=== PATIENT | male | born 1960 | race Caucasian/White ===

== ENCOUNTER 2016-03-27 14:30 | Emergency (ER) | payer OTHER ==
--- NOTE | 2016-03-27 17:54 | ED CLINICAL REPORT ---
Clinical Report - Physicians/Mid Levels [facility] [address] [place] [address] 03/27/2016 14:32 Patient: NAVEED BUCK Time Seen: 17:18; initial patient contact, initial documentation, patient care assumed. Arrived- By private vehicle. Historian- patient. HISTORY OF PRESENT ILLNESS Chief Complaint: COUGH, FEVER and "FLU". This started today and is still present. It was abrupt in onset. The illness is described as moderate. The patient has had a cough, fever and muscle aches. No difficulty breathing, chest discomfort or pain or sore throat. No nasal congestion or discharge, sinus pressure, sinus drainage or ear pain. Additional history - The patient has had contact with a sick family member. They have had similar symptoms. Similar symptoms previously: None. Recent medical care: Not recently seen/assessed. REVIEW OF SYSTEMS The patient has had nausea. No vomiting. He has had diarrhea (about x10 episodes today). No tenesmus or associated cramps. All systems otherwise negative, except as recorded above. PAST HISTORY See nurses notes. PROBLEMS: Bronchitis. Myofascial Strain. Closed head injury. Sleep Apnea. Psoriasis. --16:01 Pardeep Corona R.N. ADDITIONAL SURGERIES: Splenectomy. --16:01 Pardeep Corona RDarling. SOCIAL HISTORY Former smoker. Regular alcohol use; consumes two beers a week. Not exposed to second-hand smoke at home. No drug use. No recent travel. Is a local resident. FAMILY HISTORY Negative. ADDITIONAL NOTES The nursing notes have been reviewed with agreement regarding the chief complaint, HPI, ROS, PMH and patient medications and allergies. PHYSICAL EXAM Vital Signs: 03/27/2016 15:56 BP: 129/77. HR: 124. RR: 18. O2 saturation: 96%. Temp: 100 F. Have been reviewed as abnormal and appear to be correct. Blood pressure normal. Tachycardic. Respiratory rate normal. Febrile. Oxygen saturation normal. Appearance: Alert. No acute distress. Eyes: Pupils equal, round and reactive to light. Eyes normal inspection. ENT: Ears normal. Nose normal. Pharynx normal. Uvula midline. Neck: Normal inspection. Neck supple. CVS: Normal heart rate and rhythm. Heart sounds normal. Pulses normal. Respiratory: No respiratory distress. Breath sounds normal. Back: Normal inspection. Skin: Skin warm and dry. Normal skin color. No rash. Normal skin turgor. Extremities: Extremities exhibit normal ROM. No lower extremity edema. Neuro: Oriented X 3. No motor deficit. No sensory deficit. PROGRESS AND PROCEDURES Patient and spouse counseled in person regarding the patient's stable condition and diagnosis. 17:54. Differential Diagnosis: Other possible considerations: flu, viral illness, uri, bronchitis, pneumonia. Above considerations are based on history and physical exam. Differential diagnosis was discussed with patient and patient's spouse. Disposition: Discharged home in good and improved condition (17:54). Condition: good and stable. CLINICAL IMPRESSION Acute viral rhinitis. Acute fever Diarrhea INSTRUCTIONS Alternate Tylenol (Acetaminophen) and Motrin (Ibuprofen) for fever, temperature greater than 101 degrees orally. Take according to label instructions. Do not work today, for two days. Drink plenty of fluids for the next 24 hours until better. Warnings: GENERAL WARNINGS: Return or contact your physician immediately if your condition worsens or changes unexpectedly, if not improving as expected, or if other problems arise. Specifically return if problem worsens. Prescription Medications: Zofran 4 mg: Take 1 orally every six hours as needed for nausea/vomiting. Dispense ten (10). No refills. Substitution is permissible. Follow-up: Follow up with your doctor in about three days even if well. Call for an appointment. Summary of care provided to patient and family. Understanding of the discharge instructions verbalized by patient. (Electronically signed by Katie Trevino A.R.N.P. 03/27/2016 19:42)
--- NOTE | 2016-03-27 17:54 | ED NURSING NOTES ---
Clinical Report - Nurses [facility] [address] [place] [address] 03/27/2016 14:32 Patient: NAVEED BUCK TRIAGE Triage time 15:56 Mar 27 2016. Acuity: LEVEL 3. Chief Complaint: FEVER and BODY ACHES. Alert. ROSETTE COMA SCORE: [place] Coma Scale: 15- eyes open spontaneously (4); best verbal response- oriented x 4 (5); best motor response- obeys commands (6). --16:04 Pardeep Corona R.N. 15:56 03/27/16. BP: 129/77. HR: 124. RR: 18. O2 saturation: 96% on room air. Temp: 100 F (oral). Additional comments: stomach and MCKOY. --16:04 Pardeep Corona R.N. Weight: 92.9 kg stated. Height/Length: 69 inches Per Patient. BMI: 30.3. --15:58 Pardeep Corona R.N. Medications Ibuprofen Oral, as needed. --16:03 Pardeep Corona R.N. Allergies Penicillins. (Uncertain reaction) --16:03 Pardeep Corona R.N. History Arrived by private vehicle. Historian: patient. Accompanied by spouse. Primary physician (none). ( Flu-like symptoms with fever, chils muscle aches and a piercing MCKOY and diarrhea, N/V.). Onset. (about 13 hours ago). He has had chills, fatigue, a headache, abdominal pain and vomiting. He has had diarrhea. No recent travel. 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 (Pepto Bismol). SOCIAL HX: Former smoker, end date 2001. Alcohol use; consumes two beers a week. No drug use. No recent travel. No infectious disease exposure. ABUSE ASSESSMENT: No report of abuse. FALL RISK ASSESSMENT: Fall risk assessment completed. No fall risk identified. NUTRITIONAL RISK ASSESSMENT: The nutritional risk assessment revealed no deficiencies. FUNCTIONAL ASSESSMENT: Functional assessment: no impairments noted. LEARNING NEEDS ASSESSMENT: The learning needs assessment revealed no barriers. SKIN INTEGRITY ASSESSMENT: Skin integrity risk assessment completed. No skin integrity risk identified. --16:04 Pardeep Corona R.N. PROBLEMS: Bronchitis. Myofascial Strain. Closed head injury. Sleep Apnea. Psoriasis. --16:01 Pardeep Corona R.N. ADDITIONAL SURGERIES: Splenectomy. --16:01 Pardeep Corona R.N. Interventions ID band on patient. To treatment room. --16:04 Pardeep Corona R.N. PHYSICAL ASSESSMENT 17:10 03/27/16. Ambulatory to room. GENERAL / NEURO / PSYCH: Oriented X 4. RESPIRATORY: Respirations not labored. CVS: Capillary refill less than 2 seconds. SKIN: Skin is warm and dry. --17:10 Mejia Gomez R.N. NURSING PROGRESS NOTES 17:03/27/16. The plan of care for this patient has been created. Head of bed elevated. Two patient identifiers checked. Call light placed in reach. Side rails up x 2. Bed placed in lowest position. Brakes of bed on. Brakes of chair on. --17:10 Mejia Gomez R.N. 17:10 03/27/16. Patient ready for evaluation- chart flagged and notification provided. --17:11 Mejia Gomez R.N. 17:16 03/27/2016 Zofran ODT (Ondansetron) PO 4 mg given. Allergies verified and confirmed 5 rights. --17:16 Mejia Gomez R.N. 17:51 03/27/16. Reassessment after medication administered. Overall patient status- he states feels better. --17:51 Mejia Gomez R.N. DISPOSITION / DISCHARGE 18:08 03/27/16. Condition at departure: improved. The goals identified in the patient's plan of care were met. No learning barriers present. Discharge instructions provided and reviewed with the patient. Reviewed warnings. Reviewed medication(s). Treatments reviewed. FALL RISK ASSESSMENT: Fall risk assessment completed. No fall risk identified. --18:09 Mejia Gomez R.N. 18:08 03/27/16. BP: 116/72. HR: 101. RR: 16. O2 saturation: 100% on room air. Temp: 98.2 F (oral). --18:09 Mejia Gomez R.N. 18:09 03/27/16. Patient verbalized understanding. Written instructions provided in Bel[place]ian. The patient was discharged by the nurse practitioner. He was discharged home and accompanied by family. He left the Emergency Department ambulatory and via private vehicle. Family member driving. --18:09 Mejia Gomez R.N. 18:09 03/27/16. Departure time: 18:09. --18:09 Mejia Gomez R.N. Locked/Released at 03/27/2016 19:10 by Mejia Gomez R.N.
--- NOTE | 2016-03-27 17:54 | ED ORDER SUMMARY ---
..... Patient: NAVEED BUCK OrderSheet [facility] VisitID: [id number] [address] [place] [address] 56y, M Registration Date/Time: 03/27/2016 ORDER SHEET Weight: 92.9 kg (stated) Allergies: Penicillins GENERAL ORDERS: MEDICATION ORDERS: Zofran ODT PO 4 mg (NOW) (17:16 03/27/2016 Martin Bergman.Andrés per protocol) (17:16 Martin Bergman.Karmen.) IV FLUIDS: ORDER SHEET NOTES: [Electronically signed by Mejia Gomez R.N. (19:10 03/27/2016)] [Electronically signed by Katie Trevino (19:42 03/27/2016)] [Electronically locked/signed by Mejia Gomez R.N. (19:10 03/27/2016)]
--- NOTE | 2016-03-27 17:54 | ED NURSING NOTES ---
Clinical Report - Nurses [facility] [address] [place] [address] 03/27/2016 14:32 Patient: NAVEED BUCK TRIAGE Triage time 15:56 Mar 27 2016. Acuity: LEVEL 3. Chief Complaint: FEVER and BODY ACHES. Alert. ROSETTE COMA SCORE: [place] Coma Scale: 15- eyes open spontaneously (4); best verbal response- oriented x 4 (5); best motor response- obeys commands (6). --16:04 Pardeep Corona R.N. 15:56 03/27/16. BP: 129/77. HR: 124. RR: 18. O2 saturation: 96% on room air. Temp: 100 F (oral). Additional comments: stomach and MCKOY. --16:04 Pardeep Corona R.N. Weight: 92.9 kg stated. Height/Length: 69 inches Per Patient. BMI: 30.3. --15:58 Pardeep Corona R.N. Medications Ibuprofen Oral, as needed. --16:03 Pardeep Corona R.N. Allergies Penicillins. (Uncertain reaction) --16:03 Pardeep Corona R.N. History Arrived by private vehicle. Historian: patient. Accompanied by spouse. Primary physician (none). ( Flu-like symptoms with fever, chils muscle aches and a piercing MCKOY and diarrhea, N/V.). Onset. (about 13 hours ago). He has had chills, fatigue, a headache, abdominal pain and vomiting. He has had diarrhea. No recent travel. 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 (Pepto Bismol). SOCIAL HX: Former smoker, end date 2001. Alcohol use; consumes two beers a week. No drug use. No recent travel. No infectious disease exposure. ABUSE ASSESSMENT: No report of abuse. FALL RISK ASSESSMENT: Fall risk assessment completed. No fall risk identified. NUTRITIONAL RISK ASSESSMENT: The nutritional risk assessment revealed no deficiencies. FUNCTIONAL ASSESSMENT: Functional assessment: no impairments noted. LEARNING NEEDS ASSESSMENT: The learning needs assessment revealed no barriers. SKIN INTEGRITY ASSESSMENT: Skin integrity risk assessment completed. No skin integrity risk identified. --16:04 Pardeep Corona R.N. PROBLEMS: Bronchitis. Myofascial Strain. Closed head injury. Sleep Apnea. Psoriasis. --16:01 Pardeep Corona R.N. ADDITIONAL SURGERIES: Splenectomy. --16:01 Pardeep Corona R.N. Interventions ID band on patient. To treatment room. --16:04 Pardeep Corona R.N. PHYSICAL ASSESSMENT 17:10 03/27/16. Ambulatory to room. GENERAL / NEURO / PSYCH: Oriented X 4. RESPIRATORY: Respirations not labored. CVS: Capillary refill less than 2 seconds. SKIN: Skin is warm and dry. --17:10 Mejia Gomez R.N. NURSING PROGRESS NOTES 17:03/27/16. The plan of care for this patient has been created. Head of bed elevated. Two patient identifiers checked. Call light placed in reach. Side rails up x 2. Bed placed in lowest position. Brakes of bed on. Brakes of chair on. --17:10 Mejia Gomez R.N. 17:10 03/27/16. Patient ready for evaluation- chart flagged and notification provided. --17:11 Mejia Gomez R.N. 17:16 03/27/2016 Zofran ODT (Ondansetron) PO 4 mg given. Allergies verified and confirmed 5 rights. --17:16 Mejia Gomez R.N. 17:51 03/27/16. Reassessment after medication administered. Overall patient status- he states feels better. --17:51 Mejia Gomez R.N. DISPOSITION / DISCHARGE 18:08 03/27/16. Condition at departure: improved. The goals identified in the patient's plan of care were met. No learning barriers present. Discharge instructions provided and reviewed with the patient. Reviewed warnings. Reviewed medication(s). Treatments reviewed. FALL RISK ASSESSMENT: Fall risk assessment completed. No fall risk identified. --18:09 Mejia Gomez R.N. 18:08 03/27/16. BP: 116/72. HR: 101. RR: 16. O2 saturation: 100% on room air. Temp: 98.2 F (oral). --18:09 Mejia Gomez R.N. 18:09 03/27/16. Patient verbalized understanding. Written instructions provided in Sinhala. The patient was discharged by the nurse practitioner. He was discharged home and accompanied by family. He left the Emergency Department ambulatory and via private vehicle. Family member driving. --18:09 Mejia Gomez R.N. 18:09 03/27/16. Departure time: 18:09. --18:09 Mejia Gomez R.N. Locked/Released at 03/27/2016 19:10 by Mejia Gomez R.N.
--- NOTE | 2016-03-27 17:54 | ED ORDER SUMMARY ---
..... Patient: NAVEED BUCK OrderSheet [facility] VisitID: [id number] [address] [place] [address] 56y, M Registration Date/Time: 03/27/2016 ORDER SHEET Weight: 92.9 kg (stated) Allergies: Penicillins GENERAL ORDERS: MEDICATION ORDERS: Zofran ODT PO 4 mg (NOW) (17:16 03/27/2016 Martin Bergman.Andrés per protocol) (17:16 Martin Bergman.Karmen.) IV FLUIDS: ORDER SHEET NOTES: [Electronically signed by Mejia Gomez R.N. (19:10 03/27/2016)] [Electronically signed by Katie Trevino (19:42 03/27/2016)] [Electronically locked/signed by Mejia Gomez R.N. (19:10 03/27/2016)]
--- NOTE | 2016-03-27 19:42 | ED MAR SUMMARY ---
..... Medication Administration Record [facility] [address] [place] [address] Patient: NAVEED BUCK Visit ID: [id number] 56y, M Weight: 92.9 kg Height/Length: 69 in BMI: 30.3 ALLERGIES: Penicillins Given 17:16 03/27/2016 Mejia Gomez R.N. Medication Administered: ZOFRAN ODT [PO] (ONDANSETRON), Dose: 4 mg PO. Medication Ordered: Zofran ODT PO 4 mg (NOW).
--- NOTE | 2016-03-27 19:42 | ED DISCHARGE INSTRUCTIONS ---
Patient: NAVEED BUCK General Instructions [facility] VisitID: [id number] [place] [address] 56y, M Registration Date/Time: 03/27/2016 Acute viral rhinitis. Acute fever Diarrhea INSTRUCTIONS Alternate Tylenol (Acetaminophen) and Motrin (Ibuprofen) for fever, temperature greater than 101 degrees orally. Take according to label instructions. Do not work today, for two days. Drink plenty of fluids for the next 24 hours until better. Warnings: GENERAL WARNINGS: Return or contact your physician immediately if your condition worsens or changes unexpectedly, if not improving as expected, or if other problems arise. Specifically return if problem worsens. Prescription Medications: Zofran 4 mg: Take 1 orally every six hours as needed for nausea/vomiting. Dispense ten (10). No refills. Substitution is permissible. Follow-up: Follow up with your doctor in about three days even if well. Call for an appointment. Summary of care provided to patient and family. Understanding of the discharge instructions verbalized by patient. ADDITIONAL INFORMATION Febrile Illness, Uncertain Cause (Adult) You have a fever, but the cause is not certain. A fever is a natural reaction of the body to an illness such as infections due to a virus or bacteria. In most cases, the temperature itself is not harmful. It actually helps the body fight infections. A fever does not need to be treated unless you feel very uncomfortable. Sometimes a fever can be an early sign of a more serious infection. Therefore, you should watch for the signs listed below. Home Care: If signs and symptoms are severe, rest at home for the first 2-3 days. When you resume activity, don't let yourself get too tired. Stay away from cigarette smoke (yours and other peoples). You may use acetaminophen (Tylenol) or ibuprofen (Motrin, Advil) to control fever or pain, unless another medicine was prescribed. NOTE: If you have chronic liver or kidney disease or ever had a stomach ulcer or GI bleeding, talk with your doctor before using these medicines. (Aspirin should never be used in anyone under 18 years of age who is ill with a fever. It may cause severe liver damage.) Your appetite may be poor, so a light diet is fine. Avoid dehydration by drinking 6-8 glasses of fluid per day (water, sport drinks such as Gatorade, sodas without caffeine, juices, tea, soup). Extra fluid will help loosen secretions in the nose and lungs. Pziv-mmt-ioeygjr products will not shorten the duration of the illness but may be helpful for the following symptoms: cough (Robitussin DM); sore throat (Chloraseptic lozenges or spray); nasal and sinus congestion (Actifed or Sudafed). NOTE: Do not use decongestants if you have high blood pressure. Follow Up with your doctor or as advised if you do not start to improve over the next week. Get Prompt Medical Attention if any of the following occur: Cough with lots of colored sputum (mucus) or blood in your sputum Chest pain, shortness of breath, wheezing or difficulty breathing Severe headache, face, neck, throat or ear pain Feeling drowsy or confused Abdominal pain, repeated vomiting or diarrhea Joint pain or a new rash Burning when urinating Fever of 100.4F (38C) oral or higher, not better with fever medication Feeling weak or dizzy Convulsion Fever Control (Child) A fever is a natural reaction of the body to an illness. Your chico temperature itself usually isnt harmful. A fever actually helps the body fight infections. A fever usually doesnt need to be treated unless your child is uncomfortable and looks and acts sick. Or if your child has a chronic health condition or has had febrile seizures in the past. Home care If your child feels hot, check his or her temperature: to 5 months of age, check rectal or forehead (temporal) temperature 6 months to 3 years, check rectal, forehead, or ear temperature 4 years and older, check rectal, forehead, ear, or oral temperature Note: Rectal temperature is the most reliable temperature for infants up to 2 months old. You shouldnt use other items like plastic strips or pacifier thermometers. These are less accurate. If you dont know how to use a thermometer, ask your chico nurse or pharmacist. Keep your child dressed in lightweight clothing. This is to help your child lose the excess body heat. The fever will go up if you dress your child in extra layers or wrap your child in blankets. Fever causes the body to lose water. For infants under 1 year old, keep giving regular formula or breast feedings. Between feedings, give oral rehydration solution. You can get this at the grocery or drugstore without a prescription. For children1 year or older, give plenty of fluids. Good fluids include water, juice, gelatin water, non-caffeinated soft drinks, paulette anastacia, lemonade, fruit drinks, and frozen fruit pops. Fever medications Watch how your child is acting and feeling. You dont need to give fever medication if your child is active and alert, and is eating and drinking. You may need to give fever medicine if your child has a chronic health condition or has had febrile seizures in the past. Talk with your chico health care provider about when to treat your chico fever. You may give acetaminophen or ibuprofen if your child: Becomes less and less active Looks and acts sick Isnt sleeping, drinking, or eating as usual Has a temperature of 100.4F (38C) or higher Use the dose recommended by your chico health care provider or the dose listed on the medicine bottle label for your chico age and weight. If your child cant take or keep down oral medicine, ask your pharmacist for acetaminophen suppositories. You can get these without a prescription. Based on your chico medical condition, ask your chico health care provider if you should wake your child to give fever medicine. Sleep is important to help your child get better. Follow these tips when giving fever medicine: Dont give ibuprofen to children younger than 6 months old. Read the label before giving fever medicine. This is to make sure that you are giving the right dose. The dose should be right for your chico age and weight. If your child is taking other medicine, check the list of ingredients. Look for acetaminophen or ibuprofen. If so, tell your chico health care provider before giving your child the medicine. This is to prevent a possible overdose. If your child isyounger than 2 years,talk with your chico health care provider to find out the right medicine to use and how much to give. Dont give aspirin in a child under 18 years old who is ill with a fever. Aspirin may cause severe liver damage. Dont give ibuprofen if your child is vomiting constantly and is dehydrated. Once the fever is under control, keep giving either the acetaminophen or ibuprofen. Give whichever medicine works best. If either medicine alone doesnt keep the fever down, contact your chico health care provider. Follow-up care Follow up with your chico health care provider if your child isnt getting better. When to seek medical care Get prompt medical attention if any of these occur: Your child is 3 months old or younger and has a fever of 100.4F (38C) or higher. Get medical care right away because fever in young infants can be a sign of a dangerous infection. Your child has repeated fevers above 104F (40C) at any age. Pain that gets worse. A may show pain with crying that cant be soothed. Stiff or painful neck, headache, or repeated diarrhea or vomiting. Your child is unusually fussy, drowsy, or confused, or has a seizure. Rash or purple spots on the skin. Signs of dehydration, including no wet diapers for 8 hours, no tears when crying, sunken eyes, or dry mouth. Call your chico health care provider if: Your child is 3 to 6 months old and has a fever of 102F (38.8C). Your child is 6 months to 2 years old and his or her fever doesnt get better in 24 hours. Your child is 2 years old or older and his or her fever doesnt get better after 3 days. Taking Your Child's Temperature If your child feels hot, then check the temperature. Under 3 months : Start with a AXILLARY temperature. If it is above 99.0 F (37.2 C), take a RECTAL temperature. 3 months to 4 years : Measure a RECTAL temperature, or an EAR temperature. Over 4 years : Measure an ORAL temperature. Rectal Temperature is the most accurate. Ear temperature is not as accurate as a rectal or oral temperature, but is more convenient and can be used in the 3 month to 4 year old. Other methods such as plastic strips , forehead devices , and pacifier thermometers are even less accurate and they are not recommended. If you do not know how to use a thermometer, ask your nurse or pharmacist. Oral Method: Normal: 98.6 F (37.0 C). Range of normal: Up to 99.0 F (37.2 C). Recommended Age: Use this method for children older than 4 or 5 years of age, only if cooperative. 1) Wait at least 20 minutes after drinking or eating before taking an oral temperature. 2) Place the tip of a the thermometer under the child's tongue. 3) Have child close lips gently, without biting on the thermometer. 4) Keep under the tongue until the thermometer beeps. 5) Remove thermometer and read the temperature in the display. 6) Clean the thermometer with alcohol, or soap and water after each use. Axillary Method (UNDER THE ARM): Normal: 97.6 F (36.6 C) Range of Normal: Up to 98.6 F (37.0 C) Recommended Age: Use this method for children under 4 years of age or any uncooperative child. 1) Make sure armpit is dry and the child does not have clothing between arm and chest. 2) Place the tip of the thermometer high up in the armpit. 4) Hold the child's arm snug against their body with the thermometer in place until it beeps. 5) Remove thermometer and read the temperature in the display. 6) Clean the thermometer with alcohol, or soap and water after each use. Rectal Method: Normal: 99.6 F (37.6 C). Range of Normal: Up to 100.4 F (38.0 C). Recommended age: Use this method for children under 4 years of age or any uncooperative child. 1) Lubricate the tip of a rectal thermometer with a lubricant such as Vaseline jelly or K-Y jelly. 2) Lay your child face down across your lap, or on his/her side with knees bent toward the chest. Spread buttocks so that the anus can be easily seen. 3) Hold the thermometer between your thumb and index finger with the edge of your hand resting on the buttocks. Slowly and gently insert thermometer into the anus about one inch. The tip should slide in easily. Do not force it since they may cause injury. 4) Do not let go of the thermometer! Hold it carefully in place until it beeps. 5) Remove thermometer and read the temperature in the display. 6) Clean the thermometer with alcohol, or soap and water after each use. When To Seek Help Call your doctor or return here if you have an infant younger than 3 months with a temperature of 100.4 F (38.0 C) or an older child with a fever higher than 104.0 F (40.0 C). Viral Respiratory Illness [Adult] You have an Upper Respiratory Illness (URI) caused by a virus. This illness is contagious during the first few days. It is spread through the air by coughing and sneezing or by direct contact (touching the sick person and then touching your own eyes, nose or mouth). Most viral illnesses go away within 7-10 days with rest and simple home remedies. Sometimes, the illness may last for several weeks. Antibiotics will not kill a virus and are generally not prescribed for this condition. Home Care: 1) If symptoms are severe, rest at home for the first 2-3 days. When you resume activity, don't let yourself get too tired. 2) Avoid being exposed to cigarette smoke (yours or others). 3) Tylenol (acetaminophen) or ibuprofen (Advil, Motrin) will help fever, muscle aching and headache. (Persons under 18 with fever should not take aspirin since this may cause liver damage.) 4) Your appetite may be poor, so a light diet is fine. Avoid dehydration by drinking 6-8 glasses of fluids per day (water, soft drinks, juices, tea, soup). Extra fluids will help loosen secretions in the nose and lungs. 5) Rrnt-jwg-ofhxvoc cold medicines will not shorten the length of time youre sick, but they may be helpful for the following symptoms: cough (Robitussin DM); sore throat (Chloraseptic lozenges or spray); nasal and sinus congestion (Actifed, Sudafed, Chlortrimeton). Follow Up with your doctor or as advised if you dont improve over the next week. Get Prompt Medical Attention if any of the following occur: -- Cough with lots of colored sputum (mucus) or blood in your sputum -- Chest pain, shortness of breath, wheezing or have trouble breathing -- Severe headache; face, neck or ear pain -- Fever over 100.4 F (38.0 C) for more than three days -- You cant swallow due to throat pain Diarrhea, Uncertain Cause (Adult, Report Pending) Diarrhea has several possible causes. Commonstomach fluis caused by a virus. Food poisoning, bacteria or parasites are other causes for diarrhea. Only diarrhea caused by bacteria or parasites requires treatment with an antibiotic. Diarrhea from a virus or food poisoning improves with simple home treatment. A stool sample is needed to make the diagnosis of an infection with bacteria or parasites. Up to three stool specimens may be required to diagnose This may take up to two days to get the result. It may be necessary to wait until the stool test is complete to make the diagnosis and select the best antibiotic to prescribe. Home Care: If symptoms are severe, rest at home for the next 24 hours or until you are feeling better. You may use acetaminophen (Tylenol) or ibuprofen (Motrin, Advil) to control fever, unless another medicine was prescribed. [NOTE: If you have chronic liver or kidney disease or ever had a stomach ulcer or GI bleeding, talk with your doctor before using these medicines.] (Aspirin should never be used in anyone under 18 years of age who is ill with a fever. It may cause severe liver damage.) Avoid tobacco, caffeine and alcohol, which may worsen your symptoms. If anti-diarrhea medicine was prescribed, take this only as directed. Sometimes anti-diarrhea medicine can make your condition worse if the cause is an infectious diarrhea. Therefore, anti-diarrhea medicine should not be taken for this condition unless advised by your doctor. During The First 12-24 Hours follow the diet below: BEVERAGES: Sport drinks like Gatorade, soft drinks without caffeine; paulette anastacia, mineral water (plain or flavored), decaffeinated tea and coffee. SOUPS: Clear broth, consomm and bouillon DESSERTS: Plain gelatin (Jell-O), popsicles and fruit juice bars. During The Next 24 Hours you may add the following to the above: Hot cereal, plain toast, bread, rolls, crackers Plain noodles, rice, mashed potatoes, chicken noodle or rice soup Unsweetened canned fruit (avoid pineapple), bananas Limit fat intake to less than 15 grams per day by avoiding margarine, butter, oils, mayonnaise, sauces, gravies, fried foods, peanut butter, meat, poultry and fish. Limit fiber; avoid raw or cooked vegetables, fresh fruits (except bananas) and bran cereals. Limit caffeine and chocolate. No spices or seasonings except salt. During The Next 24 Hours Gradually resume a normal diet, as you feel better and your symptoms lessen. Follow Up with your doctor or as advised if you are not improving over the next two days. If you were asked to bring a specimen from home, bring the sample on the day of collection. You may call in 2 days (or as directed) for the results. Get Prompt Medical Attention if any of the following occur: Increasing abdominal pain or constant lower right abdominal pain Continued vomiting (unable to keep liquids down) Frequent diarrhea (more than 5 times a day) Blood in vomit or stool (black or red color) Reduced oral intake Dark urine, reduced urine output Weakness, dizziness, fainting Drowsiness, confusion, stiff neck or seizure Fever of 100.4F (38C) oral or higher, not better with fever medication New rash Fever Control (Adult) A fever is a natural reaction of the body to an illness. In most cases, the temperature itself is not harmful. It actually helps the body fight infections. A fever does not need to be treated unless you feel very uncomfortable. Home Care If you feel warm, check your temperature. If you feel very uncomfortable and your temperature is at or higher than 100.4F (38C) oral, you may take acetaminophen (Tylenol) every 4 to 6 hours. If you cant take or keep down oral medicine, ask your pharmacist for Tylenol suppositories, which you can get without a prescription. If the fever does not respond to acetaminophen within 1 hour, take ibuprofen (Advil or Motrin). If this works, keep taking the ibuprofen every 6 to 8 hours. Note: If you have chronic liver or kidney disease or ever had a stomach ulcer or GI bleeding, talk with your doctor before using these medications. If either medication alone does not keep the fever down, you may alternate the two medicines every 3 to 4 hours, only if your healthcare provider has instructed you to do so. For example, take Motrin then wait 3 hours, take Tylenol then wait 3 hours, take Motrin, and so on. Follow your healthcare providers instructions exactly. Clothing: Keep clothing light because excess body heat is lost through the skin. The fever will go up if you wear extra layers or wrap in blankets. Fluids: Fever causes the body to lose water through evaporation. Drink plenty of fluids such as water, juice, clear sodas, paulette anastacia, or lemonade. Do not use aspirin in anyone under 18 years of age who is ill with a fever. It can cause severe liver damage. Follow Up with your doctor or as advised by our staff if you do not get better after 48 hours. Get Prompt Medical Attention if any of the following occur: Fever does not get better after taking fever medication Fast or difficult breathing Earache, sinus pain, stiff or painful neck, headache, repeated diarrhea or vomiting You feel unusually irritable, drowsy, or confused A rash appears You feel weak or dizzy, or that you might faint Ondansetron Oral disintegrating tablet What is this medicine? ONDANSETRON (on NACHO se kian) is used to treat nausea and vomiting caused by chemotherapy. It is also used to prevent or treat nausea and vomiting after surgery. How should I use this medicine? These tablets are made to dissolve in the mouth. Do not try to push the tablet through the foil backing. With dry hands, peel away the foil backing and gently remove the tablet. Place the tablet in the mouth and allow it to dissolve, then swallow. While you may take these tablets with water, it is not necessary to do so. Talk to your belt maker helper regarding the use of this medicine in children. Special care may be needed. What side effects may I notice from receiving this medicine? Side effects that you should report to your doctor or health early breastfeeding care specialist as soon as possible: allergic reactions like skin rash, itching or hives, swelling of the face, lips, or tongue breathing problems dizziness fast or irregular heartbeat feeling faint or lightheaded, falls fever and chills swelling of the hands and feet tightness in the chest Side effects that usually do not require medical attention (report to your doctor or health early breastfeeding care specialist if they continue or are bothersome): constipation or diarrhea headache What may interact with this medicine? Do not take this medicine with any of the following medications: -apomorphine -cisapride -dofetilide -dronedarone -pimozide -thioridazine -ziprasidone This medicine may also interact with the following medications: -carbamazepine -phenytoin -rifampicin -tramadol -other medicines that prolong the QT interval (cause an abnormal heart rhythm) What if I miss a dose? If you miss a dose, take it as soon as you can. If it is almost time for your next dose, take only that dose. Do not take double or extra doses. Where should I keep my medicine? Keep out of the reach of children. Store between 2 and 30 degrees C (36 and 86 degrees F). Throw away any unused medicine after the expiration date. What should I tell my health care provider before I take this medicine? They need to know if you have any of these conditions: heart disease history of irregular heartbeat liver disease low levels of magnesium or potassium in the blood an unusual or allergic reaction to ondansetron, granisetron, other medicines, foods, dyes, or preservatives or trying to get breast-feeding What should I watch for while using this medicine? Check with your doctor or health early breastfeeding care specialist as soon as you can if you have any sign of an allergic reaction. You have been given the following additional information: Febrile Illness, Uncertain Cause (Adult) Fever Control (Child) Thermometer Use Uri, Viral, No Abx (Adult) Diarrhea, Unk Cause (Adult) Report Pendg Fever Control (Adult) Ondansetron Oral disintegrating tablet Do not work today, for two days. (Electronically signed by Katie Trevino A.R.N.P. 03/27/2016 19:42)
--- NOTE | 2016-03-27 19:42 | ED MED RECONCILIATION SUMMARY ---
Patient: NAVEED BUCK Medication Reconciliation Report [facility] VisitID: [id number] [address] [place] [address] 56y, M Registration Date/Time: 03/27/2016 Weight: 92.9 kg Height/Length: 69 in. BMI: 30.3 ALLERGIES: Penicillins The patient's Home Medications are listed below: THE FOLLOWING MEDICATIONS NEED TO BE RECONCILED: Ibuprofen Oral The source(s) of the original Home Medication information: Not obtained. The following Medications were given to the patient in the Emergency Department: Zofran ODT [PO] PO 4 mg, administered: 03/27/2016 5:16:00 PM The following Medications were prescribed to the patient: Zofran 4 mg: Take 1 orally every six hours as needed for nausea/vomiting. Dispense ten (10). No refills. Substitution is permissible. -- Katie Trevino A.R.N.P.
--- NOTE | 2016-03-27 19:42 | ED MAR SUMMARY ---
..... Medication Administration Record [facility] [address] [place] [place] [address] Patient: NAVEED BUCK Visit ID: [id number] 56y, M Weight: 92.9 kg Height/Length: 69 in BMI: 30.3 ALLERGIES: Penicillins Given 17:16 03/27/2016 Mejia Gomez R.N. Medication Administered: ZOFRAN ODT [PO] (ONDANSETRON), Dose: 4 mg PO. Medication Ordered: Zofran ODT PO 4 mg (NOW).
--- NOTE | 2016-03-27 19:42 | ED MED RECONCILIATION SUMMARY ---
Patient: NAVEED BUCK Medication Reconciliation Report [facility] VisitID: [id number] [address] [place] [address] 56y, M Registration Date/Time: 03/27/2016 Weight: 92.9 kg Height/Length: 69 in. BMI: 30.3 ALLERGIES: Penicillins The patient's Home Medications are listed below: THE FOLLOWING MEDICATIONS NEED TO BE RECONCILED: Ibuprofen Oral The source(s) of the original Home Medication information: Not obtained. The following Medications were given to the patient in the Emergency Department: Zofran ODT [PO] PO 4 mg, administered: 03/27/2016 5:16:00 PM The following Medications were prescribed to the patient: Zofran 4 mg: Take 1 orally every six hours as needed for nausea/vomiting. Dispense ten (10). No refills. Substitution is permissible. -- Katie Trevino A.R.N.P.
== END 2016-03-27 18:09 | disposition home or self-care (01) ==
LOC: ED SRH 14:30
DX: J31.0 Chronic rhinitis (principal); B97.89 Other viral agents as the cause of diseases classified elsewhere; R50.9 Fever, unspecified; R19.7 Diarrhea, unspecified; Z88.0 Allergy status to penicillin